=== PATIENT | male | born 1940 | race Caucasian/White ===

== ENCOUNTER → 2019-08-29 14:41 | Outpatient (CLI) | payer MEDICARE, OTHER, SELFPAY ==
[2019-08-30 16:43] LABS: COVID19 Sendout Not Detected (Not Detect)
== END ==
PROVIDERS: Visit Provider Family Medicine
DX: Z01.818 Encounter for other preprocedural examination (principal)
CPT/HCPCS: 87635

== ENCOUNTER 2019-08-31 09:17 | Day surgery (SDC) | payer MEDICARE, OTHER, SELFPAY ==
[2019-08-29 10:51] VITALS: BMI 30.1
[2019-08-31] VITALS (8 sets, daily range): BP systolic 120–155; BP diastolic 73–84; PULSE 51–73; RESP 13–21; TEMP 36.1–37; O2SAT 93–97
[2019-08-31] MEDS: LACTATED RINGERS 1,000 ML 42 ML IV (09:50)
[2019-08-31] MEDS: GABAPENTIN 300 MG CAPSULE PO (09:51)
[2019-08-31] MEDS: ACETAMINOPHEN 325 MG TABLET 975 MG PO (09:51)
--- NOTE | 2019-08-31 10:38 | PM.PREOP ---
Pre-operative Note Interval Note History & Physical reviewed/Exam performed by Physician: Yes Changes to H&P: No H&P completed within 30 days and has changed as indicated here:: There are no changes to the history and physical exam scanned on file.
[2019-08-31] MEDS: CEFAZOLIN 2 GM/100 ML FROZ.PIGGY IV (10:57)
--- NOTE | 2019-08-31 11:20 | SUR.OPER ---
Lithotomy on padded OR bed, head on pillow, arms secured on padded arm boards at <90 degrees abduction. Legs secured in padded yellow fins stirrups.
--- NOTE | 2019-08-31 11:35 | PM.OP.1 ---
Operative Date/Time/Diagnoses Date of procedure: 08/31/19 Time of procedure: 11:35 Pre-op diagnosis: 1. Gross hematuria. 2. History of high-grade urothelial carcinoma the bladder. Post-op diagnosis: other (3. Clot retention. ) Procedure & Clinicians Procedure: 1. Cystoscopy and clot evacuation. Same procedure as scheduled: No (No recurrent carcinoma visualized. Moderate amount of old retained clot.) Indications: 1. Gross hematuria. 2. History of high-grade urothelial carcinoma the bladder. Surgeon: Armando Berg Click Yes if Unassisted: Yes Anesthesia Type: General Operative Notes Findings: 1. Urethra-normal. 2. External sphincter-coapted. 3. Prostate 4.5-5 cm length with high median bar. The urothelium is hypervascular. 4. Bladder-severe trabeculation and cellule formation. The resection bed at the left floor and right posterior lateral wall was well healed. The right ureteral orifice was gaping and retracted posterior laterally. Visualization of the distal 3rd 2.5-3 cm of the ureter revealed no evidence of urothelial abnormality. Left ureteral orifice normal. There is a moderate amount of old organized clot lying dependently in the base of the bladder. Closure Type: not applicable Specimen(s): none sent Estimated Blood Loss (mL): 0 Blood products transfused: none Tourniquet time (min): 0 Complications: none Post-operative Condition: stable Disposition: PACU Plan for aftercare: Discharge home
--- NOTE | 2019-08-31 12:04 | SUR.PHASEI ---
Patient status called to patient's spouse per patient request.
--- NOTE | 2019-08-31 12:27 | SUR.PHASEI ---
Dr. Jacinto notified patient having frequent PVCs, bigeminy intermittently. Patient had denied dyspnea, chest pain or nausea. No new orders.
--- NOTE | 2019-08-31 13:30 | SUR.PHASEII ---
1240 received patient, he desires to go home, denies nausea/discomfort. Clothing and walking boot at his side. 1250Yellow ring untaped, patient examined it and joked that it was clean.
== END 2019-08-31 13:07 | disposition home or self-care (01) ==
PROVIDERS: Referring Provider Specialist; Visit Provider Specialist
PROC: (CPT 52001; principal; 2019-08-31 10:45)
DX: R31.9 Hematuria, unspecified (principal); Z85.51 Personal history of malignant neoplasm of bladder; N52.9 Male erectile dysfunction, unspecified; Z95.0 Presence of cardiac pacemaker; I25.2 Old myocardial infarction; N40.0 Benign prostatic hyperplasia without lower urinary tract symptoms; I25.10 Atherosclerotic heart disease of native coronary artery without angina pectoris
CPT/HCPCS: 52001; J0330; J0690; J2704

== ENCOUNTER 2020-01-28 11:02 | Day surgery (SDC) | payer MEDICARE, OTHER, SELFPAY ==
[2020-01-23 07:33] VITALS: BMI 29.2
[2020-01-28] VITALS (11 sets, daily range): BP systolic 123–150; BP diastolic 79–89; PULSE 60–66; RESP 12–18; TEMP 36.2–36.8; O2SAT 94–98; BMI 30.4
--- NOTE | 2020-01-28 | DI.RAD.S_ITS ---
PROCEDURE: FL PYELOGRAM RETROGRADE COMPARISON: [facility], CT, CT IVP, 02/05/2019, 13:22. INDICATIONS: RETRO PYLOGRAM BERT FINDINGS: IMPRESSION: Normal retrograde contrast evaluation of each ureter and each renal pelvis. Dictated by: Tunde Jauregui M.D. on 01/28/2020 at 16:33 Approved by: Tunde Jauregui M.D. on 01/28/2020 at 16:35
--- NOTE | 2020-01-28 | PATH_ITS ---
[facility] Accession Number: [id number] . 01 Material submitted: . bladder - LEFT BLADDER WALL TUMOR . 01 Clinical history: . SDC . 01 Diagnosis: Left Bladder Wall Tumor, TURBT: Papillary urothelial carcinoma, noninvasive; see cancer case summary. . CANCER CASE SUMMARY - BLADDER Procedure: Transurethral resection of bladder tumor. Site: Left lateral wall. Histology type: Papillary urothelial carcinoma, noninvasive. Histologic grade: Low grade. Muscularis propria presence: Muscularis propria present. Lymphovascular invasion: Not identified. Tumor extent: Noninvasive papillary carcinoma. MRV 01/31/2020 1311 Local . 01 Electronically signed: . Clarence Coe MD, PhD, Pathologist NPI- [id number] . 01 Gross description: . LEFT BLADDER WALL TUMOR: Received in formalin are 2 fragment(s) of lopez, soft tissue measuring 0.5 x 0.3 x 0.3 cm to 0.4 x 0.3 x 0.2 cm submitted entirely in 1 cassette(s) /QBJ 01/29/2020 0448 Local . 01 Pathologist provided ICD-10: C67.9 . 01 CPT . 547304 Performed at: 01 [facility] [address] [place] [address] [address], [place], [place] [id number] MD Joe Merritt MD Phone: [phone]
--- NOTE | 2020-01-28 12:41 | PM.PREOP ---
Pre-operative Note Interval Note History & Physical reviewed/Exam performed by Physician: Yes Changes to H&P: No
[2020-01-28] MEDS: CEFAZOLIN 2 GM/100 ML FROZ.PIGGY IV (13:08)
--- NOTE | 2020-01-28 13:33 | SUR.OPER ---
Lithotomy on padded OR bed, head on pillow, arms secured on padded arm boards at <90 degrees abduction. Legs secured in padded yellow fins stirrups.
[2020-01-28] MEDS: IOPAMIDOL 15 ML VIAL INJ (13:50)
[2020-01-28] MEDS: BELLADONNA/OPIUM SUPPOSITORIES 1 EACH PR (13:55)
--- NOTE | 2020-01-28 14:23 | P.OP_ITS ---
Operative Date/Time/Diagnoses Date of procedure: 01/28/20 Time of procedure: 14:23 Pre-op diagnosis: Hematuria Post-op diagnosis: same Procedure & Clinicians Procedure: 1. Cystoscopy and bilateral retrograde pyelogram. 2. Cystoscopy and right ureteroscopy. 3. Transurethral resection of bladder tumor (2). Size: 0.5-2 cm Same procedure as scheduled: No (Incidental but not unexpected finding of 2 papillary bladder tumors at left) Indications: 1. Hematuria 2. History of high-grade urothelial cell carcinoma status post TURBT 03/2019. Surgeon: Armando Berg Click Yes if Unassisted: Yes Anesthesia Type: General Operative Notes Findings: 1. Urethra-normal caliber without lesion or stricture. 2. External sphincter-coapted. 3. Rxyktbog-9-8.5 cm length with moderate lateral lobe hypertrophy an elevated median bar. 4. Bladder-2+ trabeculation. There were old, bland, clot line dependently within the bladder floor. There were 2 papillary recurrent neoplasms identified at the left lateral wall and close proximity to 1 another. The left ureteral orifice was in normal position and configuration. The right ureteral orifice was gaping and retracted laterally. The associated resection bed on the left trigone and floor was well-healed. 5. Ureters-normal appearing bilateral retrograde pyelogram with the exception of a somewhat fusiform dilation the vicinity of the junction of the middle and distal 3rd of the right ureter. Ureteroscopic evaluation revealed 2 wide, annular points of narrowing without abnormal urothelium on inspection from ureteropelvic junction to the ureterovesical junction. Closure Type: not applicable Specimen(s): other (Bladder tumor-left lateral wall.) Applied: catheter (Eighteen [place] [address] Caro catheter) Estimated Blood Loss (mL): 1 Blood products transfused: none Tourniquet time (min): 0 Procedure in detail: Patient was positioned supine and was administered general anesthesia. The lower abdomen, genitalia, and groin were prepped and draped in sterile fashion. The 22 [place] panendoscope was then passed lower urinary tract careful inspection was then undertaken with the findings as described above. Next, a 5 [place] whistle-tip catheter was utilized to perform bilateral retrograde pyelogram in succession. Rep[employer]r [employer] intraoperative images were obtained for radiographic interpretation. Next the rigid biopsy forceps were utilized to cold resect the 2 tumors. They were submitted together to in sent to pathology for routine gross and microscopic examination. The Bugbee cautery was then utilized to provide cautery hemostasis and tissue destruction of the periphery of the tumor bases. Next, the semi rigid ureteral scope was advanced into the lower urinary tract and then into the retracted right ureteral orifice and advanced proximally to the level of the right ureteropelvic junction. There was no evidence of urothelial abnormality. The ureteral scope was then removed. An 18 [place] Caro catheter was then inserted lower urinary tract and the balloon was filled to 10 cc. The bladder contents were drained completely before detaching it to gravity drainage. The patient was then repositioned in supine, was awakened, and was transferred to recovery in stable condition. Complications: none Post-operative Condition: stable Disposition: PACU Plan for aftercare: Discharge home.
--- NOTE | 2020-01-28 15:19 | SUR.PHASEII ---
Assumed care of pt, brought in, d/c instrctions discussed, familiar with changing mcnamara bag to leg bag so felt she did not need verbal teaching. Will show her when pt discharged. Both voiced an understanding. Pt drinking coffee, awaiting Dr. Berg to speak with pt.
[2020-01-28] MEDS: OXYCODONE IR 5 MG TABLET PO (15:48)
--- NOTE | 2020-01-28 17:00 | SUR.PHASEII ---
Late entry: Dr. Berg spoke with pt and , leg bag placed on pt, understood what was done, oxycodone given per pt request after pudding tolerated. Pt left when ready and left in stable condition.
== END 2020-01-28 16:00 | disposition home or self-care (01) ==
PROVIDERS: PCP Internal Medicine; Referring Provider Specialist; Visit Provider Specialist
PROC: (CPT 52234; principal; 2020-01-28 12:30)
DX: C67.9 Malignant neoplasm of bladder, unspecified (principal); N40.0 Benign prostatic hyperplasia without lower urinary tract symptoms; Z87.891 Personal history of nicotine dependence; Z95.0 Presence of cardiac pacemaker
CPT/HCPCS: 52234; 52351; 74420; 76000; J0690; J3010

== ENCOUNTER → 2020-01-31 15:06 | Outpatient (CLI) | payer MEDICARE, OTHER, SELFPAY | PROVIDERS: PCP Internal Medicine; Visit Provider Specialist | DX: N39.0 Urinary tract infection, site not specified (principal); R31.0 Gross hematuria; N40.1 Benign prostatic hyperplasia with lower urinary tract symptoms; N13.8 Other obstructive and reflux uropathy | CPT/HCPCS: 51798; 81002; 87086 ==

== ENCOUNTER → 2020-09-11 12:28 | Outpatient (CLI) | payer MEDICARE, SELFPAY ==
[2020-09-11 12:57] LABS: COVID19 -Nasal RAPID Negative (Negative)
== END ==
PROVIDERS: PCP Internal Medicine; Visit Provider Specialist
DX: Z20.822 Contact with and (suspected) exposure to COVID-19 (principal)
CPT/HCPCS: 87635; C9803

== ENCOUNTER 2020-09-12 09:48 | Day surgery (SDC) | payer MEDICARE, SELFPAY ==
[2020-09-12] VITALS (16 sets, daily range): BP systolic 144–159; BP diastolic 76–99; PULSE 62–71; RESP 8–18; TEMP 36.1–36.7; O2SAT 94–99
--- NOTE | 2020-09-12 | PATH_ITS ---
[facility] Accession Number: [id number] . 01 Material submitted: . bladder neck - RIGHT BLADDER NECK . 02 Diagnosis: Right Bladder Neck, Biopsies, Not Otherwise Specified: . Non-invasive papillary urothelial carcinoma; please see cancer case summary. . Cancer Case Summary: Procedure: Not specified. Site: Right bladder neck. Histology type: Papillary urothelial carcinoma, non-invasive. Histologic grade: Low grade. Tumor configuration: Papillary. Muscularis propria presence: Muscularis propria not identified. Lymphovascular invasion: Not identified. Tumor extent: Non-invasive papillary carcinoma. V 09/15/2020 1522 Local . 02 Comment: As part of routine quality assurance advisor, this case was also reviewed by Dr. Grace, who agrees with the interpretation. . Multiple attempts to reach Dr. Berg's office were unsuccessful on 09-15-20 at approximately 3:02-3:15 p.m. . 02 Electronically signed: . Bety Lima MD, Pathologist NPI- [id number] . 01 Gross description: . The specimen is received in formalin, labeled right bladder neck, and consists of multiple lopez-pink fragments of soft tissue measuring 1.2 x 1.0 x 0.4 cm in aggregate. The specimen is filtered and entirely submitted in cassette A1. ([id number]) /FRR 09/13/2020 1550 Local . 02 Pathologist provided ICD-10: Z85.51, C67.5 . 02 CPT . 513857 Performed at: 01 [facility] [address] [facility], [place], [place] [id number] MD Joe Merritt MD Phone: [phone] Performed at: 02 [facility] [id number] [place] [id number] MD Terrie Grace MD Phone: [phone]
--- NOTE | 2020-09-12 10:28 | PM.PREOP ---
Pre-operative Note Interval Note History & Physical reviewed/Exam performed by Physician: Yes Changes to H&P: No
[2020-09-12] MEDS: LACTATED RINGERS 1,000 ML 42 ML IV (10:45)
[2020-09-12] MEDS: CEFAZOLIN 1 GM VIAL 2 GM IV (10:52)
--- NOTE | 2020-09-12 11:13 | SUR.OPER ---
Lithotomy on padded OR bed, head on pillow, arms secured on padded arm boards at <90 degrees abduction. Legs secured in padded yellow fins stirrups.
--- NOTE | 2020-09-12 11:47 | P.OP_ITS ---
Operative Date/Time/Diagnoses Date of procedure: 09/12/20 Time of procedure: 11:47 Pre-op diagnosis: 1. History of bladder cancer. 2. Microscopic hematuria. Post-op diagnosis: same Procedure & Clinicians Procedure: 1. Transurethral resection of bladder tumor Same procedure as scheduled: Yes Indications: 1. History of bladder cancer. 2. Microscopic hematuria. Surgeon: Armando Berg Click Yes if Unassisted: Yes Anesthesia Type: General Operative Notes Findings: 1. Urethra-normal caliber without lesion or annular stricture. 2. External sphincter-coapted with normal appearing overlying urothelium. 3. Prostate-5+ cm length with moderate lateral lobe hyperplasia and elevated median bar 4. Bladder-2+ trabeculation with several cellules. Left ureteral orifices in normal position with clear efflux urine. The right ureteral orifice is gaping and retracted laterally with well-healed surrounding resection bed. Efflux from the right ureter was witnessed clear as well. There is a lobular and solid neoplasm located at the right anterior bladder neck at approximately the 11 o'clock position. Limited resection of the tumor was conducted. The anatomical location and limitations of rigid instrumentation did not allow adequate or reliable visualization and access to the base of the lesion. Intraoperative decision was made, due to unresectability of the tumor, to halt the operative plan. Closure Type: not applicable Specimen(s): other (Bladder tumor right anterolateral bladder neck) Applied: catheter (Twenty-[address] [place] 2 way hematuria catheter) Estimated Blood Loss (mL): 2 Blood products transfused: none Tourniquet time (min): 0 Procedure in detail: The patient was positioned supine and administered general anesthesia. He was then repositioned in semi lithotomy and the lower abdomen, genitalia, groin were then prepped and draped in sterile fashion. The 22 [place] panendoscope was then passed of the lower urinary tract with the findings as described above following use of both a 30 and 70 degree lens. The panendoscope was then removed and the 25 [place] resectoscope was then prepared and advanced into the lower urinary tract proximally into the bladder. Careful further examination of the tumor was conducted. Initial resection of the tumor was conducted with excellent hemostasis. As indicated above under findings intraoperative decision was to halt completion of planned surgical intervention due to unresectability and reliable hemostasis of the tumor and operative bed. The bladder was left partially filled and resectoscope was removed. A [address] [place] [address] hematuria catheter was then advanced lower urinary tract, the balloon was inflated to 10 cc, and was placed to gravity drainage. The patient was then repositioned in supine, was awakened, and transferred to [facility] for transport PACU. Complications: none Post-operative Condition: stable Disposition: PACU Plan for aftercare: 1. Discharge home today. 2. Discussed and obtained informed consent an outpatient setting for partial cystectomy.
[2020-09-12] MEDS: BELLADONNA/OPIUM SUPPOSITORIES 1 EACH PR (12:29)
[2020-09-12] MEDS: OXYCODONE IR 5 MG TABLET PO (13:45)
== END 2020-09-12 13:56 | disposition home or self-care (01) ==
PROVIDERS: PCP Internal Medicine; Referring Provider Specialist; Visit Provider Specialist
PROC: 0TBB8ZZ Excision of Bladder, Via Natural or Artificial Opening Endoscopic (ICD-10-PCS; CPT 52204; principal; 2020-09-12 10:00)
DX: C67.5 Malignant neoplasm of bladder neck (principal); N40.0 Benign prostatic hyperplasia without lower urinary tract symptoms; Z95.0 Presence of cardiac pacemaker; I25.10 Atherosclerotic heart disease of native coronary artery without angina pectoris; Z86.73 Personal history of transient ischemic attack (TIA), and cerebral infarction without residual deficits; I25.2 Old myocardial infarction; E66.9 Obesity, unspecified; Z68.30 Body mass index [BMI] 30.0-30.9, adult
CPT/HCPCS: 52204; 82962; J0690; J1100; J2405; J2704; J3010

== ENCOUNTER 2020-10-06 08:25 | Inpatient (IN) | payer MEDICARE, SELFPAY ==
[2020-10-06] VITALS (12 sets, daily range): BP systolic 112–147; BP diastolic 66–91; PULSE 62–79; RESP 12–19; TEMP 35.8–36.4; O2SAT 94–98; BMI 29.9; BMI 33.3
--- NOTE | 2020-10-06 | PATH_ITS ---
[facility] Accession Number: [id number] . 01 Material submitted: . bladder - RIGHT ANTERIOR BLADDER WALL . 02 Diagnosis: Bladder, Right Anterior Wall, TURBT: Papillary urothelial carcinoma, noninvasive, high grade. Muscularis propria present and uninvolved. MRV 10/08/2020 1304 Local . 02 Electronically signed: . Clarence Coe MD, PhD, Pathologist NPI- [id number] . 01 Gross description: . The specimen is received in formalin, labeled right anterior bladder wall and consists of a 1.5 x 1.4 x 1.0 cm lopez-pink fragment of soft tissue, which is trisected and entirely submitted in cassette A1. ([id number]) /V 10/07/2020 1147 Local . 02 Pathologist provided ICD-10: C67.9 . 02 CPT . 410216 Performed at: 01 [facility] [address] [id number] MD Joe Merritt MD Phone: [phone] Performed at: 02 [facility] [address] [place], [place] [id number] MD Terrie Grace MD Phone: [phone]
[2020-10-06 08:58] LABS: COVID19 -Nasal RAPID Negative (Negative)
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
--- NOTE | 2020-10-06 09:20 | PM.PREOP ---
Pre-operative Note Interval Note History & Physical reviewed/Exam performed by Physician: Yes Changes to H&P: No
[2020-10-06] MEDS: LACTATED RINGERS 1,000 ML 42 ML IV ×2 (09:26→11:32)
[2020-10-06] MEDS: CEFAZOLIN VIAL 3 GM in SODIUM CHLORIDE 0.9% 100 ML 200 ML IV (10:22)
--- NOTE | 2020-10-06 10:42 | SUR.OPER ---
Supine on padded OR bed, head on pillow, arms secured on padded arm boards at <90 degrees abduction, legs uncrossed, safety belt at thigh, tape over blanket over lower legs.
[2020-10-06] MEDS: BUPIVACAINE LIPOSOME 266 MG/20 ML VIAL INJ (11:01)
[2020-10-06] MEDS: BUPIVACAINE 0.5% W/ EPI (PF) 30 ML VIAL INJ (11:09)
[2020-10-06] MEDS: SODIUM CHLORIDE IRRIG SOLUTION 1,000 ML, BACITRACIN 50,000 UNIT IRR (11:09)
[2020-10-06] MEDS: NEOMYCIN/POLYMYXIN/BACITRA UD OINT 3 EACH TOP (11:10)
--- NOTE | 2020-10-06 11:48 | PM.OP.1 ---
Operative Date/Time/Diagnoses Date of procedure: 10/06/20 Time of procedure: 11:49 Pre-op diagnosis: Recurrent bladder cancer Procedure & Clinicians Procedure: 1. Partial cystectomy Same procedure as scheduled: Yes Indications: 1. Recurrent bladder cancer Surgeon: Armando Berg Natural Resources Extension Educator: Tana Coy Click Yes if Unassisted: No Anesthesia Type: General and Spinal Operative Notes Findings: Lower abdominal wall tissue planes were essentially intact. There was a friable, 2 cm neoplasm located at approximately 11:00 a.m. of the bladder neck. Closure Type: primary Specimen(s): other (Bladder tumor) Applied: catheter ([address] Caro catheter) Estimated Blood Loss (mL): 5 Blood products transfused: none Procedure in detail: The patient was positioned in supine following successful placement of Duramorph spinal anesthetic administered general anesthesia. The abdomen, genitalia, and groin were then prepped and draped in sterile fashion. A 22 [place] Caro catheter was inserted lower urinary tract and the bladder contents drained. 300 cc of sterile water were then instilled in the bladder and the Caro catheter was clamped temporarily. A midline infraumbilical incision was then performed and taken down through the layers of the midline lower abdominal wall using sharp blunt and cautery technique. The anterior surface and dome of the bladder were then carefully exposed using blunt technique a solution of 0.5% Marcaine with epinephrine was then used to infiltrate the midline bladder wall. A cystotomy was created in the bladder contents drained. The cystotomy was then extended just far enough to build a visualize the neoplasm. Additional local anesthetic was then used to infiltrate the mucosa and submucosa surrounding the neoplasm. The lesion with some underlying muscularis was then resected using cautery technique. The excision site was then closed with running, intermittently locking 4-0 Monocryl. The tumor excision was partial thickness of the bladder muscularis. Next, a mucosal muscular closure the anterior cystotomy was performed with 4-0 Monocryl. An outer seromuscular closure was performed with 2-0 Monocryl using Lembert technique. Hemostasis was excellent. Next, a 15 Russian Armaan drain was passed through separate stab incision to the right of the midline incision and the drain was positioned in the space of Retzius. The drain was secured in place with 2-0 silk. The midline fascia was closed with running 0 PDS in running fashion. The subcutaneous Stacie's layer was reapproximated using running 3-0 Vicryl. The skin was then reapproximated using a a running subcuticular technique of 4-0 Monocryl. The skin surface was then cleaned and dried. Telfa pad was then cut and fashioned appropriately for the incision line and the drain site. Over this a large Op site dressing was provided for bio occlusive finish. The Caro catheter was placed to gravity drainage and the drain was placed to bulb self suction. The patient was then awakened, transferred to a gurney, and transferred to recovery in stable condition. Complications: none Post-operative Condition: stable Disposition: PACU Plan for aftercare: Acute care
--- NOTE | 2020-10-06 12:47 | SUR.PHASEI ---
L inner ankle with dressing from home C/D/I. Pt transported up to room 222 and left with JAIME Rowley and left in stable condition, bed down, locked and SCD's on callbell in reach.
--- NOTE | 2020-10-06 14:50 | PC.NURSE ---
received pt to room 222 s/p cystectomy per dr polanco- all vss afebrile a/o denies pain whiting- mcnamara patent with tea colored urine in collection bag and clearing visible thru drainage tube- deandre drain with nothing to measure - tolerating general diet well no nausea/vomiting and room air spo2 96-99%- using IS properly
[2020-10-06] MEDS: LACTATED RINGERS 1,000 ML 125 ML IV (23:30)
[2020-10-07] VITALS: BP 119/80; PULSE 65; RESP 16; TEMP 36.8; O2SAT 95
[2020-10-07 04:00] VITALS: BP 120/74; PULSE 61; RESP 16; TEMP 36.5; O2SAT 96
[2020-10-07] MEDS: LACTATED RINGERS 1,000 ML 125 ML IV (07:18)
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
[2020-10-07 07:40] VITALS: BP 116/65; RESP 18; TEMP 36.7; O2SAT 96
--- NOTE | 2020-10-07 08:57 | CM.DANOTE ---
DCP: Case received, EMR reviewed and met with patient. Introduced self and role. Was able to obtain information regarding patient's baseline activity status prior to hospitalization. DCP assessment completed with information currently available. Patient is a 80 year old male who admitted yesterday morning to the care of the urologist. PCP: Dr. Talley. Payer: confirmed: [employer] Medicare. Patient came to the hospital via private vehicle for a surgical procedure. He had a partial cystectomy, secondary to having recurrent bladder neoplasm. Patient was originally diagnosed in March of 2019. He was also admitted in June for gross hematuria. Met with patient in his room. He is alert and oriented, and independent at his baseline. He resides on [address] with his spouse, Jaylene. He is aware that he will most likely go home with a mcnamara catheter. Patient stated, he has had catheters before, and is familiar with them. P: Patient has discharge orders to go home today, with mcnamara catheter. He will follow up at urology office. Amanda Gomez RN/[place]
[2020-10-07] MEDS: FINASTERIDE 5 MG TABLET PO (09:59)
[2020-10-07] MEDS: DOXAZOSIN 4 MG TABLET PO (09:59)
[2020-10-07] MEDS: ENOXAPARIN 30 MG/0.3 ML SYRINGE SUBCUT (09:59)
--- NOTE | 2020-10-07 12:38 | PC.NURSE ---
Discharge: Pt feels ready to d/c to home. He has been up amb in hallway w/out problems. He is going home with catheter and has had a catheter 3 times previously. Equipment given, he did not want to practice changing from the large bag to the leg bag. Reviewed lovenox teaching and Pharmacist also reviewed medications and lovenox with pt. Drain removed intact and sm gauze dressing placed over site. Pt understands this dressing should be removed in 2 days. Sm midline incision is to be left open to air. No use of pain medication, pt reports he doesn't need them. Tolerates diet w/out problems. Reviewed d/c packet. Rx has been esent and pt was shown this. Questions answered. Pt voiced no concerns at time of teaching about going home. Awaiting to see him.
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
== END 2020-10-07 12:30 | disposition home or self-care (01) | DRG 655 ==
PROVIDERS: Admitting Provider Specialist; PCP Internal Medicine; Referring Provider Specialist; Visit Provider Specialist
PROC: 0TBB0ZZ Excision of Bladder, Open Approach (ICD-10-PCS; CPT 51525; principal; 2020-10-06 09:45)
DX: C67.5 Malignant neoplasm of bladder neck (principal); I25.10 Atherosclerotic heart disease of native coronary artery without angina pectoris; Z20.822 Contact with and (suspected) exposure to COVID-19; Z87.891 Personal history of nicotine dependence; Z95.0 Presence of cardiac pacemaker
CPT/HCPCS: 51550; 82962; 87086; 87635; C9803; C9290; J0690; J1100; J1650; J2250; J2274; J2405; J2704; J3010

== ENCOUNTER → 2020-10-15 14:39 | Outpatient (CLI) | payer MEDICARE, SELFPAY ==
[2020-10-15 14:37] VITALS: BMI 33.3
== END ==
PROVIDERS: PCP Internal Medicine; Visit Provider Specialist
DX: N39.0 Urinary tract infection, site not specified (principal)
CPT/HCPCS: 51798; 81002; 87086

== ENCOUNTER 2023-07-22 06:26 | Day surgery (SDC) | payer MEDICARE, SELFPAY ==
[2020-11-20 12:17] VITALS: BMI 33.3
[2023-07-20 08:30] VITALS: BMI 26.5
[2023-07-22] VITALS (8 sets, daily range): BP systolic 123–151; BP diastolic 73–90; PULSE 57–67; RESP 12–18; TEMP 36.1–36.7; O2SAT 92–99; BMI 26.5
--- NOTE | 2023-07-22 | PATH_ITS ---
[facility] Accession Number: [id number] No. of containers..02 Tissue . 01 Material submitted: . PART A: bladder - BLADDER TUMOR PART B: lymph node - LEFT ILIAC LYMPH NODE . 01 Clinical history: . RECEIVED ONE SLIDE IN 95% ALCOHOL RECEIVED ONE SLIDE IN CUPBOARD . 01 Diagnosis: A. BLADDER TUMOR, TRANSURETHRAL RESECTION: Papillary urothelial carcinoma, high-grade. Microscopic tumor extension: Worrisome but not diagnostic for invasion into subepithelial connective tissue/lamina propria. Muscularis propria is present and is not involved. Negative for lymphovascular invasion. . B. LEFT ILIAC LYMPH NODE: Six lymph nodes, negative for metastaic carcinoma (0/6). CLARISSA 07/25/2023 1610 Local . 01 Comment: As part of routine quality systems manager, part A was also reviewed by Dr. Olivia Doe, who agrees with the interpretation. . 01 Electronically signed: . Bailey Pandey MD, Pathologist NPI- [id number] . 01 Gross description: . A. Received in formalin, labeled with two identifiers and bladder tumor, are multiple small lopez soft tissue fragments aggregating to 2.5 x 1.1 x 0.1 cm. Filtered and submitted entirely in cassette A1. B. Received in formalin, labeled with two identifiers and left iliac lymph node biopsy, are multiple yellow to lopez soft tissue fragments consistent with lymph node candidates, ranging from 0.3 x 0.3 x 0.3 cm to 1.0 x 0.9 x 0.2 cm. Submitted entirely as follows: B1: Three intact lymph node candidates. B2: Three intact lymph node candidates. ([id number]) /FRR 07/23/2023 1539 Local . 01 Pathologist provided ICD-10: C67.9 . 01 CPT . 742744, 207802 Specimen Comment: A courtesy copy of this report has been sent to [phone] Specimen Comment: [id number] Performed at: [facility] [address] [place] [address], [place], [place] [id number] MD Joe Merritt MD Phone: [phone]
[2023-07-22] MEDS: LACTATED RINGERS 1,000 ML 21 ML IV ×2 (07:10→09:18)
[2023-07-22] MEDS: ACETAMINOPHEN IV 1,000 MG/100 ML VIAL 400 MG IV (07:20)
[2023-07-22 07:35] LABS: Hemoglobin 12.9 g/dL (13.5-17.5); Mean Corpuscular Hemoglobin 30.3 PG (26-34); Platelet Count 261 X10^3/uL (150-400); Red Blood Cell Count 4.24 X10^6/uL (4.5-5.9); Red Cell Distribution Width 15.4 % (11.6-14.8); White Blood Cell Count 10.7 X10^3/uL (4.5-11.0)
--- NOTE | 2023-07-22 07:35 | PM.PREOP ---
Pre-operative Note Interval Note History & Physical reviewed/Exam performed by Physician: Yes Changes to H&P: No
--- NOTE | 2023-07-22 07:46 | PM.PREOP ---
Pre-operative Note Interval Note History & Physical reviewed/Exam performed by Physician: Yes Changes to H&P: No
--- NOTE | 2023-07-22 08:17 | SUR.PREOP ---
Per Luigi in the lab, potassium 8.2 and calcium 4.1. Notified Anesthesiology and Surgeon. Re-collected labs in case of hemolysis.
[2023-07-22 08:35] LABS: Blood Urea Nitrogen 35 mg/dL (9-20); Calcium 8.8 mg/dL (8.4-10.2); Carbon Dioxide 29 mmol/L (22-32); Chloride 108 mmol/L (98-107); Estimated Glomerular Filt Rate > 60 mL/min (>60); Glucose 98 mg/dL (80-110); HEMOLYSIS < 15 (0-50); Potassium 4.8 mmol/L (3.4-5.1); Sodium 139 mmol/L (137-145)
[2023-07-22] MEDS: TRANEXAMIC ACID 1,000 MG in SODIUM CHLORIDE 0.9% 100 ML 200 MG IV (08:46)
[2023-07-22] MEDS: CEFAZOLIN 2 GM/100 ML PREMIX 100 ML IV (08:50)
--- NOTE | 2023-07-22 09:03 | SUR.OPER ---
Lithotomy on padded OR bed, head on pillow, arms secured on padded arm boards at <90 degrees abduction. Legs secured in padded yellow fins stirrups.
[2023-07-22] MEDS: WATER FOR INJECTION,STERILE 20 ML, mitoMYcin 20 MG INTRAVESIC (10:10)
--- NOTE | 2023-07-22 10:30 | SUR.OPER ---
Bianca Hooks procedure end time at 1011. Sterile re-draping and prep for Buddy Taylor. Timeout at 1022. Incision at 1024.
--- NOTE | 2023-07-22 10:33 | PM.OP.1 ---
Operative Date/Time/Diagnoses Date of procedure: 07/22/23 Time of procedure: 10:10 Pre-op diagnosis: 1. Recurrent malignant neoplasm of the bladder. 2. Gross hematuria. Post-op diagnosis: same Procedure & Clinicians Procedure: 1. Cystoscopy/Transurethral resection of recurrent carcinoma of the bladder (greater than 5 cm). He complexity modifier is justifiable in this case due to extended length greater than 150% of usual and postoperative history and changes with resulting fixation of anterior bladder wall and dome to anterior bladder wall and pubic symphysis. 2. Cystoscopy/installation mitomycin-C (20 mg). Same procedure as scheduled: Yes Indications: 1. Recurrent malignant neoplasm of the bladder. 2. History of previous TURBT common previous partial cystectomy for unresectable recurrent bladder cancer. 3. Gross hematuria. Surgeon: Armando Berg Click Yes if Unassisted: Yes Anesthesia Type: General Operative Notes Findings: 1. Urethra-normal caliber without annular stricture or lesion. 2. External sphincter coapted with normal overlying urothelium and vascularity. 3. Prostate-4.5+ cm length with moderate lateral lobe hyperplasia and extremely elevated median bar. 4. Bladder-1 to 2+ trabeculation. Two shallow diverticula at the posterior wall. Right orifices in normal position with clear efflux. Left ureteral orifice could not identified. Closure Type: not applicable Specimen(s): other (TUR bladder tumor chips) Applied: catheter ([address] Caro catheter.) Estimated Blood Loss (mL): 1 Blood products transfused: none Procedure in detail: The patient was positioned supine and was administered general anesthesia. He was then repositioned semi-lithotomy and the lower abdomen, genitalia, and groin were then prepped and draped in sterile fashion. This surgeon requested patient paralysis for the case. The 26 Hebrew resectoscope was then advanced lower urinary tract with the findings as described above. The resectoscope was then fitted with the resecting loop. The neoplasm geographic distribution was documented via intra operative photographs. There was extensive surface area, well in excess of 1/3 of total bladder surface area. The tumor extended from near the midline and then laterally to the lateral wall, off the lateral wall across near the level of the dome posteriorly then medially before extending down near the midline and covering the posterior wall. Using the thin resecting loop the most superficial areas were painstakingly cautery destroyed to a depth of the urothelium and superficial muscularis. The more centrally located mixed papillary and solid neoplasms were resected down and to include muscle in the specimen. Much of the post TUR intraoperative photographs and direct visualization indicated extensive visualized muscle. Of particular complexity in the case where to individual posterior wall diverticulum near the base, both of which had malignancy at the margin and within. With great care these lesions were resected and/or cautery destroyed depending upon tumor position access access with loop. All tissue was then irrigated with the Kaylin evacuator. Final visualization indicated no residual visual tumor or bleeding. Bladder was then left partially filled and the resectoscope was removed. A 22 Hebrew Caro catheter was then inserted into the bladder, the balloon inflated 10 cc in the bladder contents drained. A 20 cc solution containing 20 mg of mitomycin C were then instilled into the bladder and a catheter plug inserted for anticipated 2 hour retention. The patient was then repositioned in supine, was awakened, then transferred to a rbuchanan for transport to PACU in stable condition. Complications: none Post-operative Condition: stable Disposition: PACU Plan for aftercare: 1. Retained mitomycin x2 hours (12:10 p.m. closely. 2. Discharge with indwelling Caro catheter. 3. Return to Urology Clinic for review pathology supervise voiding trial in 10-12 days.
[2023-07-22 11:37] LABS: Appearance Urine UA SL CLOUDY; Bilirubin Urine UA NEGATIVE (NEGATIVE); Color Urine UA YELLOW; Glucose Urine UA NEGATIVE (Negative); Ketones Urine UA NEGATIVE (NEGATIVE); Leukocyte Esterase Urine UA NEGATIVE (NEGATIVE); Nitrite Urine UA NEGATIVE (Negative); Occult Blood Urine UA 3+ (Negative); Protein Urine UA NEGATIVE (Negative); Specific Gravity Urine UA 1.015 (1.000-1.035); Urobilinogen Urine UA 0.2 E.U./dL (0.2); pH Urine UA 5.5 (4.5-8.0)
[2023-07-22] MEDS: OXYCODONE IR 5 MG TABLET PO (11:46)
[2023-07-22 11:51] LABS: Bacteria Urine None Seen; RBC Urine 30-100/HPF (0-5/HPF); Squamous Epithelial Cell Urine 0-1 /HPF (0-5/HPF); Transitional Epi Cells Urine 0-1/HPF (0-5/HPF); Urine Volume 10mL (spun); WBC Urine 1-5/HPF (0-5/HPF)
[2023-07-22 11:52] LABS: Culture Indicated Urine Cult Not Indicated; Renal Epithelial Cells Urine 0-1/HPF (0-1/HPF)
--- NOTE | 2023-07-22 17:30 | PM.OP.1 ---
Operative Date/Time/Diagnoses Date of procedure: 07/22/23 Time of procedure: 17:30 Pre-op diagnosis: Recurrent bladder cancer, left inguinal lymphadenopathy. Post-op diagnosis: same Procedure & Clinicians Procedure: Excisional biopsy of left inguinal lymph node Same procedure as scheduled: Yes Indications: Armando is a 82-year-old man with recurrent bladder cancer here for TURBT and excisional biopsy of left inguinal lymph node. Surgeon: Calixto Brandon Severity Of Illness Coordinator: Tana Coy Anesthesia Type: General Operative Notes Findings: 2 cm necrotic lymph node adjacent to the external iliac artery Specimen(s): other (Iliac lymph node) Estimated Blood Loss (mL): 20 Procedure in detail: Following the completion the TURBT patient was prepped and draped in sterile fashion. Time-out was performed. A supra inguinal ligament incision was made in left groin. Subcutaneous tissue was divided. The external oblique aponeurosis was opened along direction of its fibers. The spermatic cord was isolated and encircled with a Zuleika drain. The floor of the inguinal canal was opened. The peritoneum was swept upward. The external iliac artery was clearly palpable and kept out of harm's way. Adjacent to the iliac vessels there was a 2 cm necrotic lymph node. The lymph node was excised from the surrounding tissue and passed off the field as specimen. Hemostasis was obtained. We placed Surgifoam into the wound. The floor of the inguinal canal was then covered using a piece of polypropylene mesh which was attached to the pubic tubercle and its several places along the inguinal ligament using Ethibond suture. The tails of the mesh were wrapped around the spermatic cord loosely. The external oblique was then closed in a running fashion. Subcutaneous tissue was reapproximated using Vicryl and the skin closed with Monocryl followed by the application of Dermabond. Complications: none Post-operative Condition: stable Disposition: same day surgery
== END 2023-07-22 13:41 | disposition home or self-care (01) ==
PROVIDERS: Nurse Anesthetist, Certified Registered; Surgery; PCP Internal Medicine; Referring Provider Specialist; Visit Provider Specialist
PROC: 0TBB8ZZ Excision of Bladder, Via Natural or Artificial Opening Endoscopic (ICD-10-PCS; CPT 52240; principal; 2023-07-22 07:45)
PROC: (CPT 38531; 2023-07-22 07:45)
DX: C67.9 Malignant neoplasm of bladder, unspecified (principal); N32.3 Diverticulum of bladder
CPT/HCPCS: 52240; 38531; 80048; 81001; 85027; J0136; J0690; J1100; J2250; J2405; J2704; J3010; J3490; J9280

== ENCOUNTER → 2023-08-01 15:16 | Outpatient (CLI) | payer MEDICARE, SELFPAY ==
[2020-11-20 12:17] VITALS: BMI 33.3
== END ==
PROVIDERS: PCP Internal Medicine; Visit Provider Urology
DX: N40.1 Benign prostatic hyperplasia with lower urinary tract symptoms (principal); N13.8 Other obstructive and reflux uropathy
CPT/HCPCS: 51798; 87086

== ENCOUNTER → 2023-08-30 15:14 | Outpatient (CLI) | payer MEDICARE, SELFPAY ==
[2020-11-20 12:17] VITALS: BMI 33.3
== END ==
PROVIDERS: PCP Internal Medicine; Visit Provider Specialist
DX: N40.1 Benign prostatic hyperplasia with lower urinary tract symptoms (principal); N13.8 Other obstructive and reflux uropathy
CPT/HCPCS: 87086

== ENCOUNTER → 2023-09-29 13:21 | Outpatient (CLI) | payer MEDICARE, SELFPAY ==
[2020-11-20 12:17] VITALS: BMI 33.3
== END ==
PROVIDERS: PCP Internal Medicine; Visit Provider Specialist
DX: C67.9 Malignant neoplasm of bladder, unspecified (principal); N40.1 Benign prostatic hyperplasia with lower urinary tract symptoms; N13.8 Other obstructive and reflux uropathy; Z85.51 Personal history of malignant neoplasm of bladder
CPT/HCPCS: 51798; 52000; 81002; 87086; 99215

== ENCOUNTER 2023-10-07 06:23 | Day surgery (SDC) | payer MEDICARE, SELFPAY ==
[2020-11-20 12:17] VITALS: BMI 33.3
[2023-10-05 08:04] VITALS: BMI 25.5
[2023-10-07] VITALS (9 sets, daily range): BP systolic 125–153; BP diastolic 59–82; PULSE 56–82; RESP 14–96; TEMP 36.1–36.3; O2SAT 95–98; BMI 25.1
--- NOTE | 2023-10-07 | PATH_ITS ---
[facility] Accession Number: [id number] No. of containers..03 Tissue . 01 Material submitted: . PART A: bladder - LEFT LATERAL WALL PART B: bladder, dome - LEFT ANTERIOR DOME PART C: bladder - LEFT LATERAL WALL PREVIOUS RESECTION BED . 01 Diagnosis: A. BLADDER, LEFT LATERAL WALL, BIOPSY: Urothelial carcinoma in situ (CIS). No invasion identified. Muscularis propria present and uninvolved. . B. BLADDER, LEFT ANTERIOR DOME, TURBT: Papillary urothelial carcinoma, high grade, noninvasive. No muscularis propria identified. . C. BLADDER, LEFT LATERAL WALL, PREVIOUS RESECTION BED, BIOPSY: Ulcerated, predominantly denuded urothelial mucosa. No evidence of neoplasm. No muscularis propria identified. [facility] 10/12/2023 1310 Local . 01 Comment: As part of routine quality lab technician, Dr. Pandey has reviewed this case and agrees with the diagnoses above. . 01 Electronically signed: . Clarence Coe MD, PhD, Pathologist NPI- [id number] . 01 Gross description: . Part A: LEFT LATERAL WALL: Received in formalin is 1 fragment(s) of lopez, soft tissue measuring 0.4 x 0.4 x 0.2 cm submitted entirely in 1 cassette(s) Part B: LEFT ANTERIOR DOME: Received in formalin are 2 fragment(s) of lopez, soft tissue measuring 0.2 x 0.2 x 0.2 cm to 0.3 x 0.3 x 0.2 cm submitted entirely in 1 cassette(s) Part C: LEFT LATERAL WALL PREVIOUS RESECTION BED: Received in formalin are 4 fragment(s) of lopez, soft tissue measuring 0.1 x 0.1 x 0.1 cm to 0.5 x 0.5 x 0.3 cm submitted entirely in 1 cassette(s) /FLAQUITO 10/10/2023 1929 Local . 01 Pathologist provided ICD-10: C67.9 . 01 CPT . 404096, [id number], 853121 Specimen Comment: A courtesy copy of this report has been sent to [phone] Performed at: [facility] [address], [place], [place] [id number] MD Joe Merritt MD Phone: [phone]
[2023-10-07] MEDS: LACTATED RINGERS 1,000 ML 21 ML IV (07:15)
[2023-10-07] MEDS: ALBUTEROL/IPRATROPIUM 3 ML AMPUL INH (07:49)
--- NOTE | 2023-10-07 07:50 | PM.PREOP ---
Pre-operative Note Interval Note History & Physical reviewed/Exam performed by Physician: Yes Changes to H&P: No
[2023-10-07] MEDS: CIPROFLOXACIN 400 MG/200 ML PIGGYBACK 200 MG IV (08:16)
--- NOTE | 2023-10-07 08:40 | SUR.OPER ---
Lithotomy on padded OR bed, head on pillow, arms secured on padded arm boards at <90 degrees abduction. Legs secured in padded yellow fins stirrups. Gel pads to bilateral heels.
[2023-10-07] MEDS: SODIUM CHLORIDE 0.9% INTRAVESIC (09:20)
[2023-10-07] MEDS: GEMCITABINE HCL INTRAVESIC (09:20)
[2023-10-07] MEDS: HYDROMORPHONE 1 MG INJ IV (09:42)
--- NOTE | 2023-10-07 09:52 | SUR.PHASEI ---
0929 - Received to PACU after general anesthesia. Oral airway in place. No further airway assistance required. Report received from Dr Tucker and Latanya Soto RN.
--- NOTE | 2023-10-07 10:02 | PM.OP.1 ---
Operative Date/Time/Diagnoses Date of procedure: 10/07/23 Time of procedure: 09:20 Pre-op diagnosis: Recurrent bladder cancer. Post-op diagnosis: same Procedure & Clinicians Procedure: 1. Transurethral resection bladder tumors (2.0 to 5.0 cm)/instillation gemcitabine (2000 mg). Same procedure as scheduled: Yes Indications: 1. Recurrent, multifocal, urothelial carcinoma. 2. History of high-risk, high-grade urothelial carcinoma. Surgeon: Armando Berg Click Yes if Unassisted: Yes Anesthesia Type: General Operative Notes Closure Type: not applicable Specimen(s): other (1. Left bladder wall. 2. Left lateral wall-resection bed. 3. Left anterior dome. ) Applied: catheter (Eighteen Icelandic [address] Caro catheter) Estimated Blood Loss (mL): 2 Blood products transfused: none Procedure in detail: Patient was positioned supine was administered general anesthesia. He was then repositioned in semilithotomy and the lower abdomen, genitalia, and groin were then prepped and draped in sterile fashion. The resectoscope was then inserted lower urinary tract and advanced proximally under direct visualization with the findings as described above. Using the cough close cold cup biopsy forceps several deep bites at the margin in send her of the previous left lateral wall resection bed were procured, labeled as to the site and sent to pathology for routine gross and microscopic examination. A lesion at the left lateral wall more superiorly and posteriorly to this site was then biopsied deeply, and likewise was labeled as to the site and submitted to pathology for routine gross and microscopic examination. The resectoscope was then fitted with the resecting loop. A larger, higher grade tumor identified at the left anterior dome was then resected carefully. The resected fragments were gathered in labeled as to the site and then submitted to pathology for routine gross and microscopic examination. The resecting loop was then used to cautery destroyed multiple satellite neoplasm located at the right dome, dome, posterior wall, and other sites of the left lateral wall and anterior lateral floor. Hemostasis was excellent. The bladder was partially filled and empty x3 to cleanse any residual gross cellular tissue debris. The bladder was then partially filled a 4th time and the resectoscope was removed. Eighteen Icelandic Caro catheter was then inserted, the balloon inflated 10 cc and the contents of the bladder drain. Now, 2000 mg gemcitabine suspended in 120 cc sterile saline were then instilled in the bladder. A catheter plug was positioned for anticipated 1 hour postoperative retention. The patient was then repositioned supine, awakened, and then transported recovery in stable condition. Complications: none Post-operative Condition: stable Disposition: PACU Plan for aftercare: 1. Retained gemcitabine x1 hour in PACU. Rotate patient Q 15 minutes. 2. Discharge home with Caro catheter to gravity drainage.
--- NOTE | 2023-10-07 11:16 | SUR.PHASEII ---
Gemcitabine Instillation Gemcitabine instilled into bladder in OR for a 1 hour dwell time. Med to be drained from catheter at 1020 per PACU nurse handoff. Gemcitabine drained as ordered using Chemo precautions at 10:20. Patient tolerated well. Vital signs stable. Patient denies pain. Urine color light pink.
== END 2023-10-07 11:11 | disposition home or self-care (01) ==
PROVIDERS: PCP Internal Medicine; Referring Provider Specialist; Visit Provider Specialist
PROC: 0TBB8ZZ Excision of Bladder, Via Natural or Artificial Opening Endoscopic (ICD-10-PCS; CPT 52235; principal; 2023-10-07 07:45)
DX: C67.9 Malignant neoplasm of bladder, unspecified (principal)
CPT/HCPCS: 52235; J0330; J0744; J1100; J1170; J2405; J2704; J3010; J3490; J9201

== ENCOUNTER → 2023-10-11 15:25 | Outpatient (CLI) | payer MEDICARE, SELFPAY ==
[2020-11-20 12:17] VITALS: BMI 33.3
== END ==
PROVIDERS: PCP Internal Medicine; Visit Provider Specialist
DX: N40.1 Benign prostatic hyperplasia with lower urinary tract symptoms (principal); N13.8 Other obstructive and reflux uropathy
CPT/HCPCS: 87086

== ENCOUNTER → 2024-01-02 14:04 | Outpatient (CLI) | payer MEDICARE, SELFPAY ==
[2020-11-20 12:17] VITALS: BMI 33.3
[2024-01-02 14:20] LABS: Appearance Urine UA CLOUDY; Bilirubin Urine UA 1+ (NEGATIVE); Color Urine UA YELLOW; Glucose Urine UA NEGATIVE (Negative); Ketones Urine UA NEGATIVE (NEGATIVE); Leukocyte Esterase Urine UA 2+ (NEGATIVE); Nitrite Urine UA NEGATIVE (Negative); Occult Blood Urine UA 3+ (Negative); Protein Urine UA 2+ (Negative); pH Urine UA 6.5 (4.5-8.0)
[2024-01-02 14:27] LABS: Bacteria Urine Few (2-10); RBC Urine >100/HPF (0-5/HPF); Squamous Epithelial Cell Urine 1-5 /HPF (0-5/HPF); Urine Volume 10mL (spun); WBC Urine 5-10/HPF (0-5/HPF)
[2024-01-02 14:28] LABS: Culture Indicated Urine Specimen Cultured
[2024-01-02 14:31] LABS: Ictotest Urine Negative (Negative)
== END ==
PROVIDERS: PCP Internal Medicine; Visit Provider Urology
DX: N40.1 Benign prostatic hyperplasia with lower urinary tract symptoms (principal); N13.8 Other obstructive and reflux uropathy
CPT/HCPCS: 81001; 87086

== ENCOUNTER → 2024-01-24 15:08 | Outpatient (CLI) | payer MEDICARE, SELFPAY ==
[2024-01-02 15:04] VITALS: BMI 33.3
== END ==
PROVIDERS: PCP Internal Medicine; Visit Provider Urology
DX: N40.1 Benign prostatic hyperplasia with lower urinary tract symptoms (principal); N13.8 Other obstructive and reflux uropathy
CPT/HCPCS: 52000; 81002; 87086; 99214

== ENCOUNTER 2024-01-27 08:30 | Day surgery (SDC) | payer MEDICARE, SELFPAY ==
[2024-01-02 15:04] VITALS: BMI 33.3
[2024-01-25 14:43] VITALS: BMI 25.9
[2024-01-27] VITALS (11 sets, daily range): BP systolic 119–166; BP diastolic 21–78; PULSE 65–80; RESP 14–22; TEMP 36.3–36.6; O2SAT 93–98; BMI 25.9
--- NOTE | 2024-01-27 | PATH_ITS ---
[facility] Accession Number: [id number] No. of containers..02 Tissue . 01 Material submitted: . PART A: bladder, dome - BLADDER DOME PART B: bladder - POSTERIOR BLADDER WALL . 01 Diagnosis: A. Bladder, dome, biopsy: - Papillary urothelial carcinoma, high grade, noninvasive, in superficial biopsy. - No muscularis propria identified. -- B. Bladder, posterior wall, biopsy: - Papillary urothelial carcinoma, high grade, noninvasive. - Muscularis propria present and not involved by carcinoma. - See comment. -- Comment: Immunohistochemical stains performed on part B with appropriate controls show: Vahe keratin immune stain supports the absence of invasive carcinoma, and CD34 immune stain supports the absence of lympho-vascular invasion. Dr. Doe reviewed this case and supports the above diagnosis. -- Technical Note: This test was developed, and the performance characteristics were validated by [employer]. It has not been cleared or approved by the Food and Drug Administration. TXN 02/01/2024 1200 Local . 01 Electronically signed: . Tawthalia Perales MD, Pathologist NPI- [id number] . 01 Gross description: . Part A: BLADDER DOME: Received in formalin is 1 fragment(s) of lopez, soft tissue measuring 0.6 x 0.5 x 0.5 cm submitted entirely in 1 cassette(s) Part B: POSTERIOR BLADDER WALL: Received in formalin are multiple fragment(s) of lopez, soft tissue measuring 0.1 x 0.1 x 0.1 cm to 0.7 x 0.6 x 0.5 cm submitted entirely in 2 cassette(s) /[place] 01/28/2024 0138 Local . 01 Pathologist provided ICD-10: C67.4, C67.1 . 01 CPT . 485195, 217010, X39809, M99401 Specimen Comment: A courtesy copy of this report has been sent to [facility] Pathology Performed at: [address] [id number] MD oJe Merritt MD Phone: [phone]
[2024-01-27] MEDS: LACTATED RINGERS 1,000 ML 42 ML IV (09:04)
[2024-01-27] MEDS: ACETAMINOPHEN 325 MG TABLET 975 MG PO (09:24)
[2024-01-27] MEDS: ALBUTEROL/IPRATROPIUM 3 ML AMPUL INH (09:24)
--- NOTE | 2024-01-27 09:31 | PM.PREOP ---
Pre-operative Note COVID-19 COVID-19 status: Not tested Interval Note History & Physical reviewed/Exam performed by Physician: Yes Changes to H&P: No
[2024-01-27 09:32] LABS: Hematocrit 35.4 % (41-53); Hemoglobin 11.8 g/dL (13.5-17.5); Mean Corpuscular HGB Conc 33.3 % (30-36); Mean Corpuscular Hemoglobin 30.7 PG (26-34); Mean Corpuscular Volume 92.1 fL (80-100); Platelet Count 254 X10^3/uL (150-400); Red Blood Cell Count 3.84 X10^6/uL (4.5-5.9); Red Cell Distribution Width 14.4 % (11.6-14.8); White Blood Cell Count 10.6 X10^3/uL (4.5-11.0)
--- NOTE | 2024-01-27 11:08 | SUR.OPER ---
Lithotomy on padded OR bed, head on pillow, arms secured on padded arm boards at <90 degrees abduction. Legs secured in padded yellow fins stirrups.
--- NOTE | 2024-01-27 12:30 | PM.OP.1 ---
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 Surgeon: Shahram Steinberg Click Yes if Unassisted: Yes Anesthesia Type: General Operative Notes Findings: 4cm patch of papillary lesions along right lateral bladder wall immediately superior and medial to right ureteral orifice, 4cm patch of papillary lesions along posterior bladder wall and 4cm patch of papillary lesions along bladder dome, small papillary lesions noted around right ureteral orifice and extending into right distal ureter Closure Type: not applicable Specimen(s): other (posterior bladder wall mass, bladder dome mass) Applied: catheter Estimated Blood Loss (mL): 3 Blood products transfused: none Procedure in detail: Patient was identified in the preoperative holding area and consent confirmed. He was then brought to the operating room where general anesthesia was induced. He was then placed in the low lithotomy position. He was then prepped and draped in the usual sterile fashion. A surgical timeout was conducted and all were in agreement. Access to the bladder was obtained via a 21Fr cystoscope. Complete cystoscopy was then performed using a 30 and 70 degree lens. A 4cm patch of papillary lesions along right lateral bladder wall immediately suprior and medial to right ureteral orifice, 4cm patch of papillary lesions along posterior bladder wall and 4cm patch of papillary lesions along bladder dome, small papillary lesions noted around right ureteral orifice and extending into right distal ureter. The 26Fr resectoscope with visual obturator was then advanced through his urethra and into his bladder. The working element with Gyrus loop was then assembled and passed through the resectoscope and into the bladder. The aforementioned masses were then resected to their base. The resection beds were then fulgurated. The right ureteral orifice was left intact throughout the procedure and clear efflux was appreciated at case end. All bladder specimens were then manually evacuated from the bladder using the resectoscope. Hemostasis was evaluated and noted to be excellent at case end. An 18Fr mcnamara was then inserted into the bladder at case end, 10cc of sterile water was used for balloon insufflation. Anesthesia was reversed, he was extubated in the OR and transferred to the PACU in stable condition for recovery. Complications: none Post-operative Condition: stable Disposition: PACU Plan for aftercare: Discharge home from PACU with mcnamara catheter in place. Will remove his mcnamara catheter on 03 Feb 2024 at home. Will contact with pathology results over the phone, they would only like to return to clinic to discuss results should they indicated muscle invasive bladder cancer. Otherwise, would plan on starting intravesical Anktiva.
[2024-01-27] MEDS: ALBUTEROL 2.5 MG/3 ML NEB (ADULT) INH (12:49)
== END 2024-01-27 13:50 | disposition home or self-care (01) ==
PROVIDERS: Student in an Organized Health Care Education/Training Program; PCP Internal Medicine; Referring Provider Urology; Visit Provider Urology
PROC: 0TBB8ZZ Excision of Bladder, Via Natural or Artificial Opening Endoscopic (ICD-10-PCS; CPT 52240; principal; 2024-01-27 10:00)
DX: C67.8 Malignant neoplasm of overlapping sites of bladder (principal)
CPT/HCPCS: 52240; 85027; J1100; J2405; J2704; J3010; J3490; J7613

== ENCOUNTER → 2024-02-17 13:34 | Outpatient (CLI) | payer MEDICARE, SELFPAY ==
[2024-02-10 10:25] VITALS: BMI 33.3
== END ==
PROVIDERS: PCP Internal Medicine; Referring Provider Urology; Visit Provider Urology
DX: C67.9 Malignant neoplasm of bladder, unspecified (principal); N40.1 Benign prostatic hyperplasia with lower urinary tract symptoms; N13.8 Other obstructive and reflux uropathy; R31.0 Gross hematuria
CPT/HCPCS: 51720; 81002; 87077; 87086; 87147; 87186; 99214; J9030

== ENCOUNTER → 2024-02-27 15:45 | Outpatient (CLI) | payer MEDICARE, SELFPAY ==
[2024-02-10 10:25] VITALS: BMI 33.3
== END ==
PROVIDERS: PCP Internal Medicine; Referring Provider Urology; Visit Provider Urology
DX: N40.1 Benign prostatic hyperplasia with lower urinary tract symptoms (principal); N13.8 Other obstructive and reflux uropathy
CPT/HCPCS: 87077; 87086; 87147

== ENCOUNTER → 2024-03-05 14:23 | Outpatient (CLI) | payer MEDICARE, SELFPAY ==
[2024-02-10 10:25] VITALS: BMI 33.3
== END ==
PROVIDERS: PCP Internal Medicine; Visit Provider Urology
DX: N40.1 Benign prostatic hyperplasia with lower urinary tract symptoms (principal); R31.0 Gross hematuria; N13.8 Other obstructive and reflux uropathy
CPT/HCPCS: 51720; 81002; 87077; 87086; 87147; 87186; J9030

== ENCOUNTER → 2024-03-12 14:16 | Outpatient (CLI) | payer MEDICARE, SELFPAY ==
[2024-02-10 10:25] VITALS: BMI 33.3
== END ==
PROVIDERS: PCP Internal Medicine; Visit Provider Urology
DX: C67.9 Malignant neoplasm of bladder, unspecified (principal); N40.1 Benign prostatic hyperplasia with lower urinary tract symptoms; N13.8 Other obstructive and reflux uropathy; R31.0 Gross hematuria
CPT/HCPCS: 51720; 81002; 87077; 87086; 87147; 87186; J9030

== ENCOUNTER → 2024-03-19 14:15 | Outpatient (CLI) | payer MEDICARE, SELFPAY ==
[2024-02-10 10:25] VITALS: BMI 33.3
== END ==
PROVIDERS: PCP Internal Medicine; Visit Provider Urology
DX: N40.1 Benign prostatic hyperplasia with lower urinary tract symptoms (principal); N13.8 Other obstructive and reflux uropathy
CPT/HCPCS: 87086

== ENCOUNTER → 2024-03-26 14:23 | Outpatient (CLI) | payer MEDICARE, SELFPAY ==
[2024-02-10 10:25] VITALS: BMI 33.3
== END ==
PROVIDERS: PCP Internal Medicine; Visit Provider Urology
DX: N13.8 Other obstructive and reflux uropathy (principal); C67.9 Malignant neoplasm of bladder, unspecified; N40.1 Benign prostatic hyperplasia with lower urinary tract symptoms; R97.20 Elevated prostate specific antigen [PSA]
CPT/HCPCS: 51720; 81002; 87077; 87086; 87186; J9030

== ENCOUNTER → 2024-05-08 13:59 | Outpatient (CLI) | payer MEDICARE, SELFPAY ==
[2024-02-10 10:25] VITALS: BMI 33.3
== END ==
PROVIDERS: PCP Internal Medicine; Visit Provider Urology
DX: C67.9 Malignant neoplasm of bladder, unspecified (principal); N40.1 Benign prostatic hyperplasia with lower urinary tract symptoms; N13.8 Other obstructive and reflux uropathy; R31.0 Gross hematuria; N28.89 Other specified disorders of kidney and ureter
CPT/HCPCS: 52000; 87077; 87086; 87186; 99214

== ENCOUNTER 2024-05-18 11:21 | Day surgery (SDC) | payer MEDICARE, SELFPAY ==
[2024-02-10 10:25] VITALS: BMI 33.3
--- NOTE | 2024-05-18 | PATH_ITS ---
[facility] Accession Number: [id number] No. of containers..02 Tissue . 01 Material submitted: . PART A: bladder - RIGHT BLADDER MASS PART B: bladder - LEFT BLADDER NECK MASS . 01 Diagnosis: A. RIGHT BLADDER MASS: Granulomatous cystitis, consistent with treatment effect. No neoplasm identified. . B. LEFT BLADDER NECK MASS, TRANSURETHRAL RESECTION OF BLADDER TUMOR: Papillary urothelial carcinoma, high grade. Invasion into lamina propria present. Muscularis properia present and is negative for tumor involvement. [facility] 05/25/2024 1511 Local . 01 Comment: This case is also reviewed by Dr. Link Doe (Julie), who agrees with the interpretation. . 01 Electronically signed: . Bety Lima MD, Pathologist NPI- [id number] . 01 Gross description: . A. Received in formalin with two patient identifiers and 1. Right bladder mass, is a single lopez soft tissue fragment, 0.4 cm in greatest dimension, submitted in A1. B. Received in formalin with two patient identifiers and 2. Left bladder neck mass, are six lopez soft tissue fragments, 0.2-0.6 cm in greatest dimension, submitted in B1. ([id number]) /MRV 05/22/2024 1731 Local . 01 Microscopic: . Immunohistochemical stains for the following are performed to evaluate for block reactivity. The control stained with appropriate reactivity. . RESULTS: Block A1 [place]: Negative, consistent with absence of tumor. . Block B1 CK20: Patchy positive. P53: Wild-type pattern. Desmin: Present in regions of interest. [place]: Positive in regions of interest. . The absence of concurrent CK20 and p53 strong immunostaining mitigates against the presence of urothelial carcinoma in situ in the biopsy. Desmin positivity demonstrates muscularis propria and the absence of invasive tumor into the muscularis propria. . * This test was developed and the performance characteristics were validated by [facility]. It has not been cleared or approved by the U.S. Food and Drug Administration. . 01 Pathologist provided ICD-10: C67.9, C66.1 . 01 CPT . 492271, 657309, Z87115, P61107 Specimen Comment: A courtesy copy of this report has been sent to [facility] Pathology Performed at: [address] [id number] MD Joe Merritt MD Phone: [phone]
--- NOTE | 2024-05-18 | DI.RAD.S_ITS ---
PROCEDURE: FL PYELOGRAM RETROGRADE Indications: Right stent placement. TECHNIQUE: Fluoroscopic guidance utilized for a right nephroureteral stent placement COMPARISON: None. FINDINGS: Fluoroscopic images submitted for a right nephroureteral stent placement. Please see operative note for further discussion. IMPRESSION: Fluoroscopic guidance. Dictated by: Vijay Gillis M.D. on 05/18/2024 at 15:52 Approved by: Vijay Gillis M.D. on 05/18/2024 at 15:53
[2024-05-18 12:02] VITALS: BP 123/71; PULSE 56; RESP 16; TEMP 36.8; O2SAT 98; BMI 25.8
[2024-05-18] MEDS: LACTATED RINGERS 1,000 ML 42 ML IV (12:15)
--- NOTE | 2024-05-18 12:27 | PM.PREOP ---
Pre-operative Note COVID-19 COVID-19 status: Not tested Interval Note History & Physical reviewed/Exam performed by Physician: Yes Changes to H&P: No
[2024-05-18] MEDS: GENTAMICIN 480 MG in SODIUM CHLORIDE 0.9% 100 ML 112 MG IV (13:05)
--- NOTE | 2024-05-18 13:09 | SUR.OPER ---
Lithotomy on padded OR bed, head on pillow, arms secured on padded arm boards at <90 degrees abduction. Legs secured in padded yellow fins stirrups.
[2024-05-18] MEDS: iopamidoL 30 ML VIAL INJ (14:12)
[2024-05-18 14:31] VITALS: BP 174/96; PULSE 83; RESP 14; TEMP 36.2; O2SAT 97
[2024-05-18 14:36] VITALS: BP 147/77; PULSE 64; RESP 16; O2SAT 99
[2024-05-18 14:41] VITALS: BP 150/77; PULSE 63; RESP 15; O2SAT 97
[2024-05-18 14:46] VITALS: BP 150/77; PULSE 65; RESP 15; TEMP 36.4; O2SAT 93
--- NOTE | 2024-05-18 14:51 | PM.OP.1 ---
Procedure & Clinicians Procedure: Cystoscopy Transurethral resection of bladder tumor Right diagnostic ureteroscopy Right ureteral stent placement Same procedure as scheduled: Yes Indications: 83 y/o M w/ high-risk NMIBC whose last TURBT in early Jan 2024 was notable for HG Ta w/ muscle present and not involved. 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 Discussed that his cystoscopy was notable for a 4cm papillary mass along his left bladder neck, as well as a 5mm papillary mass immediately inside of his right ureteral orifice. Surgeon: Shahram Steinberg Click Yes if Unassisted: Yes Anesthesia Type: General Operative Notes Findings: 4cm papillary mass along left side of bladder neck at 2 o'clock, 1cm mass along right lateral bladder wall immediately superior and medial to right ureteral orifice, 5mm papillary mass immediately inside right ureteral orifice Closure Type: not applicable Specimen(s): other (right bladder mass, left bladder neck mass) Applied: catheter Estimated Blood Loss (mL): 2 Blood products transfused: none Procedure in detail: Patient was identified in the preoperative holding area and consent confirmed. He was then brought to the operating room where general anesthesia was induced. He was then placed in the low lithotomy position. He was then prepped and draped in the usual sterile fashion. A surgical timeout was conducted and all were in agreement. Access to the bladder was obtained via a 21Fr cystoscope. Complete cystoscopy was then performed using a 30 and 70 degree lens. A 4cm papillary mass along the left side of bladder neck at 2 o'clock, 1cm mass along right lateral bladder wall immediately superior and medial to right ureteral orifice, 5mm papillary mass immediately inside right ureteral orifice. No other concerning lesions were appreciated. The cystoscope was then removed and his urethral meatus was serially dilated using Wil sounds from 22Fr to 30Fr. The 26Fr resectoscope with visual obturator was then advanced through his urethra and into his bladder. The working element with Gyrus loop was then assembled and passed through the resectoscope and into the bladder. The masses were then resected to their base and sent for specimen.. The resection bed was then fulgurated. The resectoscope was then removed and a flexible ureteroscope was advanced into the right ureteral orifice. The aforementioned mass was attempted to be biopsied, however, it was too small. The ureteroscope was then advanced through the right ureter and into the right renal pelvis. Complete pyeloscopy was performed and no concerning masses were noted in his right renal collecting system or right ureter. Prior to removal of the ureteroscope, a ureteral guidewire was advanced through the ureteroscope and into the right renal collecting system. The cystoscope was then backloaded over the ureteral guidewire and advanced into the bladder. A 5Fr ureteral catheter was advanced over the guidewire and into the right proximal ureter. A retrograde ureteropyelogram was performed whcih noted no contrast extravasation. A 6Fr multi-length ureteral stent without strings was then advanced over the guidewire and into the right renal pelvis. Upon removal of the guidewire, a good curl was noted upon fluoroscopy in the right renal pelvis and visually within the bladder. Hemostasis was evaluated at case end and noted to be excellent. The bladder was then drained and the cystoscope was removed. Anesthesia was reversed, he was extubated in the OR and transferred to the PACU in stable condition for recovery. Complications: none Post-operative Condition: stable Disposition: PACU Plan for aftercare: Discharge home from PACU. Will remove his mcnamara catheter at home on 24 May 2024. Will return for his first set of induction BCG on 11 Jun 2024.
[2024-05-18 14:52] VITALS: BP 148/84; PULSE 65
== END 2024-05-18 15:24 | disposition home or self-care (01) ==
PROVIDERS: PCP Internal Medicine; Referring Provider Urology; Visit Provider Urology
PROC: 0TBB8ZZ Excision of Bladder, Via Natural or Artificial Opening Endoscopic (ICD-10-PCS; CPT 52235; principal; 2024-05-18 13:00)
DX: C66.1 Malignant neoplasm of right ureter; C67.5 Malignant neoplasm of bladder neck; I25.10 Atherosclerotic heart disease of native coronary artery without angina pectoris; I25.2 Old myocardial infarction; N40.1 Benign prostatic hyperplasia with lower urinary tract symptoms; N13.8 Other obstructive and reflux uropathy; F17.220 Nicotine dependence, chewing tobacco, uncomplicated; Z95.0 Presence of cardiac pacemaker; N30.80 Other cystitis without hematuria
CPT/HCPCS: 52235; 52332; 74420; J0330; J2405; J2704; J3010; J3490; Q9967

== ENCOUNTER → 2024-06-11 13:35 | Outpatient (CLI) | payer MEDICARE, SELFPAY ==
[2024-06-08 15:40] VITALS: BMI 33.3
== END ==
PROVIDERS: PCP Internal Medicine; Visit Provider Urology
DX: C67.9 Malignant neoplasm of bladder, unspecified (principal); N40.1 Benign prostatic hyperplasia with lower urinary tract symptoms; N13.8 Other obstructive and reflux uropathy
CPT/HCPCS: 51720; 81002; 87086; J9171; J9201

== ENCOUNTER → 2024-06-18 13:15 | Outpatient (CLI) | payer MEDICARE, SELFPAY ==
[2024-06-08 15:40] VITALS: BMI 33.3
== END ==
PROVIDERS: PCP Internal Medicine; Visit Provider Urology
DX: N13.8 Other obstructive and reflux uropathy (principal); N40.1 Benign prostatic hyperplasia with lower urinary tract symptoms
CPT/HCPCS: 87086

== ENCOUNTER → 2024-06-25 13:22 | Outpatient (CLI) | payer MEDICARE, SELFPAY ==
[2024-06-08 15:40] VITALS: BMI 33.3
== END ==
PROVIDERS: PCP Internal Medicine; Visit Provider Urology
DX: N40.1 Benign prostatic hyperplasia with lower urinary tract symptoms (principal); N13.8 Other obstructive and reflux uropathy; C67.9 Malignant neoplasm of bladder, unspecified
CPT/HCPCS: 51720; 81002; 87086; J9171; J9201

== ENCOUNTER → 2024-07-02 13:29 | Outpatient (CLI) | payer MEDICARE, SELFPAY ==
[2024-06-08 15:40] VITALS: BMI 33.3
== END ==
PROVIDERS: PCP Internal Medicine; Visit Provider Urology
DX: N40.1 Benign prostatic hyperplasia with lower urinary tract symptoms (principal); N13.8 Other obstructive and reflux uropathy
CPT/HCPCS: 87086

== ENCOUNTER → 2024-07-09 13:20 | Outpatient (CLI) | payer MEDICARE, SELFPAY ==
[2024-06-08 15:40] VITALS: BMI 33.3
== END ==
PROVIDERS: PCP Internal Medicine; Visit Provider Urology
DX: N40.1 Benign prostatic hyperplasia with lower urinary tract symptoms (principal); N13.8 Other obstructive and reflux uropathy; C67.9 Malignant neoplasm of bladder, unspecified
CPT/HCPCS: 51720; 81002; 87086; J9171; J9201

== ENCOUNTER → 2024-07-16 13:26 | Outpatient (CLI) | payer MEDICARE, SELFPAY ==
[2024-06-08 15:40] VITALS: BMI 33.3
== END ==
PROVIDERS: PCP Internal Medicine; Visit Provider Urology
DX: C67.9 Malignant neoplasm of bladder, unspecified (principal); N40.1 Benign prostatic hyperplasia with lower urinary tract symptoms; N13.8 Other obstructive and reflux uropathy
CPT/HCPCS: 51720; 81002; 87086; J9171; J9201

== ENCOUNTER → 2024-08-27 13:57 | Outpatient (CLI) | payer MEDICARE, SELFPAY ==
[2024-06-08 15:40] VITALS: BMI 33.3
== END ==
PROVIDERS: PCP Internal Medicine; Visit Provider Urology
DX: C67.9 Malignant neoplasm of bladder, unspecified (principal); N40.1 Benign prostatic hyperplasia with lower urinary tract symptoms; N13.8 Other obstructive and reflux uropathy
CPT/HCPCS: 52000; 81002; 87086; 99213

== ENCOUNTER → 2024-10-01 13:17 | Outpatient (CLI) | payer MEDICARE, SELFPAY ==
[2024-06-08 15:40] VITALS: BMI 33.3
== END ==
PROVIDERS: PCP Internal Medicine; Visit Provider Urology
DX: N40.1 Benign prostatic hyperplasia with lower urinary tract symptoms (principal); N13.8 Other obstructive and reflux uropathy
CPT/HCPCS: 51720; 81002; 87086; J9171; J9201

== ENCOUNTER → 2024-10-29 13:28 | Outpatient (CLI) | payer MEDICARE, SELFPAY ==
[2024-06-08 15:40] VITALS: BMI 33.3
== END ==
PROVIDERS: PCP Internal Medicine; Visit Provider Urology
DX: D64.9 Anemia, unspecified (principal); N40.1 Benign prostatic hyperplasia with lower urinary tract symptoms; N13.8 Other obstructive and reflux uropathy
CPT/HCPCS: 51720; 81002; 87086; J9171; J9201

== ENCOUNTER → 2025-01-29 11:16 | Outpatient (CLI) | payer MEDICARE, SELFPAY ==
[2024-11-26 14:26] VITALS: BMI 33.3
== END ==
PROVIDERS: PCP Internal Medicine; Visit Provider Urology
DX: N40.1 Benign prostatic hyperplasia with lower urinary tract symptoms (principal); N13.8 Other obstructive and reflux uropathy; C67.9 Malignant neoplasm of bladder, unspecified
CPT/HCPCS: 51720; 81002; 87086; J9171; J9201

== ENCOUNTER 2025-04-23 08:06 | Day surgery (SDC) | payer MEDICARE, SELFPAY ==
[2024-11-26 14:26] VITALS: BMI 33.3
[2025-04-04 10:42] VITALS: BMI 24.3
--- NOTE | 2025-04-23 | PATH_ITS ---
[facility] Accession Number: [id number] No. of containers..01 Tissue . 01 Material submitted: . bladder - BLADDER MASS . 01 Diagnosis: BLADDER MASS, TRANSURETHRAL RESECTION: Papillary urothelial carcinoma, high grade. Depth of invasion: Non-invasive. Muscularis propria is present and is negative for tumor involvement. No lymphovascular or perineural invasion identified. MRV 05/03/2025 1451 Local . 01 Comment: As part of ongoing software quality assurance specialist, this case is also reviewed by Dr. Homero Watts, who agrees with the interpretation. . 01 Electronically signed: . Bailey Pandey MD, Pathologist NPI- [id number] . 01 Gross description: . Received in formalin with two patient identifiers, and bladder mass is a 2.0 x 1.0 x 0.3 cm aggregate of lopez, friable tissue fragments, entirely submitted in A1. ([id number]) /MRV 04/30/2025 1143 Local . 01 Pathologist provided ICD-10: C67.9 . 01 CPT . 962810 Specimen Comment: A courtesy copy of this report has been sent to [facility] Pathology Performed at: [address] [facility] [address], [place], [place] [id number] MD Joe Merritt MD Phone: [phone]
[2025-04-23] MEDS: LACTATED RINGERS 1,000 ML 42 ML IV (08:48)
[2025-04-23] MEDS: ALBUTEROL/IPRATROPIUM 3 ML AMPUL INH (08:48)
[2025-04-23 08:51] VITALS: BP 131/71; PULSE 61; RESP 21; TEMP 36.9; O2SAT 95
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
--- NOTE | 2025-04-23 09:57 | SUR.OPER ---
Lithotomy on padded OR bed, head on pillow, arms secured on padded arm boards at <90 degrees abduction. Legs secured in padded yellow fins stirrups.
--- NOTE | 2025-04-23 10:17 | P.OP_ITS ---
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 He had a repeat TURBT in Apr that was notable for HG Ta <1cm in greatest diameter. He then underwent induction [place] followed by monthly treatments. Discussed that his cystoscopy in Feb was notable for a 1cm papillary mass along his anterior bladder wall. Discussed the need for a TURBT. Discussed risks of the TURBT to include pain, bleeding, infection, injury to urethra/prostate/bladder/ureteral orifice, need for a ureteral stent, prolonged catheterization, and possible open repair of ureteral and/or bladder injury. He indicated understanding and his informed consent was obtained today. Surgeon: Shahram Steinberg Assisted?: No Anesthesia Type: General Operative Notes Findings: 2.5cm left anterior bladder wall mass Closure Type: not applicable Specimen(s): other (bladder mass) Applied: catheter Estimated Blood Loss (mL): 2 Blood products transfused: none Procedure in detail: Patient was identified in the preoperative holding area and consent confirmed. He was then brought to the operating room where general anesthesia was induced. He was then placed in the low lithotomy position. He was then prepped and draped in the usual sterile fashion. A surgical timeout was conducted and all were in agreement. Access to the bladder was obtained via a 21Fr cystoscope. Complete cystoscopy was then performed using a 30 and 70 degree lens. A 2.5cm papillary mass was noted along his left anterior bladder wall.. Bilateral ureteral orifices were visualized and noted to be orthotopic in nature. No other concerning lesions were appreciated. The cystoscope was then removed and his urethral meatus was serially dilated using [place] sounds from 22Fr to 30Fr. The 26Fr resectoscope with visual obturator was then advanced through his urethra and into his bladder. The working element with Gyrus loop was then assembled and passed thro [facility] the resectoscope and into the bladder. The mass was then resected to its base. The resection bed was then fulgurated. All bladder specimens were then manually evacuated from the bladder using the resectoscope. Hemostasis was evaluated and noted to be excellent at case end. An 18Fr mcnamara was then inserted into the bladder at case end, 10cc of sterile water was used for balloon insufflation. Anesthesia was reversed, he was extubated in the OR and transferred to the PACU in stable condition for recovery. Complications: none Post-operative Condition: stable Disposition: PACU Plan for aftercare: Discharge home from PACU. Will remove mcnamara catheter at home on 26 Apr 2025.
[2025-04-23 10:23] VITALS: BP 170/75; PULSE 72; RESP 17; TEMP 36.5; O2SAT 97
[2025-04-23 10:30] VITALS: BP 151/61; PULSE 71; RESP 19; TEMP 36.4; O2SAT 94
[2025-04-23 10:40] VITALS: BP 144/70; PULSE 65; RESP 18; TEMP 36.4; O2SAT 94
[2025-04-23 10:58] VITALS: BP 152/75; PULSE 59; RESP 16; O2SAT 94
[2025-04-23] MEDS: ACETAMINOPHEN 325 MG TABLET 975 MG PO (11:22)
[2025-04-23 11:30] VITALS: BP 149/74; PULSE 60; RESP 18; TEMP 37; O2SAT 96
== END 2025-04-23 11:55 | disposition home or self-care (01) ==
PROVIDERS: PCP Internal Medicine; Referring Provider Internal Medicine; Visit Provider Urology
PROC: 0TBB8ZZ Excision of Bladder, Via Natural or Artificial Opening Endoscopic (ICD-10-PCS; CPT 52235; principal; 2025-04-23 09:45)
DX: C67.9 Malignant neoplasm of bladder, unspecified (principal); J44.9 Chronic obstructive pulmonary disease, unspecified; I25.10 Atherosclerotic heart disease of native coronary artery without angina pectoris; I25.2 Old myocardial infarction; F17.220 Nicotine dependence, chewing tobacco, uncomplicated; Z95.0 Presence of cardiac pacemaker
CPT/HCPCS: 52235; 82962; J0689; J1100; J2405; J2704; J3010; J3490; J7120